=== PATIENT | male | born 1935 | race African-American/Black ===

== ENCOUNTER → 2017-10-01 | Outpatient (CLI) | payer OTHER | END | disposition home or self-care (01) | DX: M16.11 Unilateral primary osteoarthritis, right hip (principal); R26.2 Difficulty in walking, not elsewhere classified; M25.551 Pain in right hip; M25.651 Stiffness of right hip, not elsewhere classified; M62.81 Muscle weakness (generalized) | CPT/HCPCS: 97161 GP; 97165 GO; 97530 GP; 97535 GO; G8978 GP; G8979 GP; G8980 GP; G8987 GO; G8988 GO; G8989 GO ==

== ENCOUNTER 2017-11-04 23:02 | Inpatient (IN) | payer OTHER ==
[~2017-11-04] VITALS: Ht 182.9 cm; Wt 87.7 kg
[~2017-11-04 23:02] MED LIST: ACIDOPHILUS 17175 MG PO; B COMPLEX #11 EACH PO; CENTRAVITES 501 EACH PO; CO Q-10100 MG PO; FISH OIL 1,0001 EAC7 PO; FLONASE SENSIM9.9 ML BOTH NARES; GLUCOSAMINE CH1 EAC6 PO; L-GLUTAMINE500 M5 PO; LAXATIVE DIETA500 MG PO; LO-DOSE ASPIRIN81 M2 PO; MSM1000 MG PO; PATADAY2.5 ML BOTH EYES; PERIDEX473 ML MM; PRILOSEC20 MG PO; SELENIUM200 MC3 PO; TRANSDERM-SCOP1 EACH TD; VIAGRA50 MG PO; VITAMIN C500 M6 PO; VITAMIN E400 UNIT PO; ZESTRIL40 MG PO; ZOCOR40 MG PO
[2017-11-05 06:22] VITALS: BP 163/77
[2017-11-05 09:43] LABS: HEMATOCRIT 39.7 % (38.0-50.0); HEMOGLOBIN 12.9 G/DL (12.5-16.6); MCH 27.9 PG (29.0-34.0); MCHC 32.5 G/DL (30.0-36.0); MCV 85.7 FL (86-99); PLATELET COUNT 196 K/uL (156-360); RBC DIS.WIDTH-CV 14.5 % (11.8-14.6); RBC DIS.WIDTH-SD 45.6 % (39-53); RED BLOOD COUNT 4.63 M/uL (4.00-5.50); WHITE BLOOD COUNT 7.3 K/uL (4.1-10.2)
[2017-11-05 11:45] VITALS: BP 123/61
[2017-11-05 15:41] VITALS: BP 112/56
[2017-11-05 19:50] VITALS: BP 110/56
[2017-11-05 23:37] VITALS: BP 100/54
[2017-11-06 04:16] VITALS: BP 112/58
[2017-11-06 06:22] LABS: HEMATOCRIT 34.5 % (38.0-50.0); HEMOGLOBIN 11.5 G/DL (12.5-16.6); MCV 84.6 FL (86-99)
[2017-11-06 06:43] LABS: CHLORIDE 106 MEQ/L (99-109); GFR ESTIMATE (CALCULATED) > 59 mL/min/ (58.99-99999); GLUCOSE 113 mg/dL (70-99); POTASSIUM 3.7 MEQ/L (3.7-5.4); SODIUM 139 MEQ/L (136-147); UREA NITROGEN (BUN) 16 mg/dL (9-23)
[2017-11-06 12:19] VITALS: BP 110/54
[2017-11-06 15:54] VITALS: BP 110/55
[2017-11-06 20:02] VITALS: BP 118/56
[2017-11-07 00:23] VITALS: BP 130/64
[2017-11-07 04:29] VITALS: BP 121/57
[2017-11-07 08:03] VITALS: BP 104/59
[2017-11-07 08:06] VITALS: BP 104/59
[2017-11-07] MEDS ORDERED: HYDROCODON-ACE1 EAC7 PO (08:53)
[2017-11-07] MEDS ORDERED: LOVENOX40 MG/0.4 SC (08:53)
[2017-11-07 12:11] VITALS: BP 111/58
[2017-11-07 15:06] VITALS: BP 129/60
== END 2017-11-07 15:36 | DRG 470 ==
LOC: ENRESERV 23:02 → 3WEST 11-05 05:28 → 2SOUTH 11-05 05:28 → 3WEST 11-05 11:39 → 2SOUTH 11-05 13:31 → 3WEST 11-07 15:36
PROVIDERS: Orthopaedic Surgery
PROC: 0SR902A Replacement of Right Hip Joint with Metal on Polyethylene Synthetic Substitute, Uncemented, Open Approach (ICD-10-PCS; principal; 2017-11-05)
DX: M16.11 Unilateral primary osteoarthritis, right hip (principal); E78.00 Pure hypercholesterolemia, unspecified; I10 Essential (primary) hypertension; K21.9 Gastro-esophageal reflux disease without esophagitis; J30.1 Allergic rhinitis due to pollen; Z87.891 Personal history of nicotine dependence; Z79.82 Long term (current) use of aspirin; Z79.51 Long term (current) use of inhaled steroids; Z86.13 Personal history of malaria
CPT/HCPCS: 73501; 80048; 85014; 85018; 85027; 97530 GO; 97530 GP; J0690; J1170; J1650; J2250; J2795; J3010; J7050; Q0175